=== PATIENT | female | born 1985 | race Caucasian/White ===

== ENCOUNTER 2019-09-29 22:16 | Inpatient (IN) | payer BC, OTHER ==
[~2019-09-29] VITALS: Ht 172.7 cm; Wt 82.0 kg
--- NOTE | 2019-09-29 23:00 | NUR ---
SIENNA PONCE FROM [facility]. SAMPLE CLERK 20G LEFT HAND, PAIN MEDS GIVEN ABOUT 2029. PT C/O RLQ PAIN STARTING THIS AM. PT CONNECTED TO MONITORING. FATHER AT BEDSIDE. AWAITING ORDERS AT THIS TIME.
--- NOTE | 2019-09-29 23:52 | NUR ---
REPORT GIVEN TO JAY WEBER
[2019-09-30] MEDS ORDERED: ONDANSETRON 2MG/ML, 2ML ONE ×2 (01:13→03:41)
[2019-09-30] MEDS ORDERED: MORPHINE SULFATE 4 MG/ML, 1ML ONE (01:13)
[2019-09-30] MEDS ORDERED: ONDANSETRON 2MG/ML, 2ML IVPush ONE (01:30)
[2019-09-30] MEDS ORDERED: MORPHINE SULFATE 4 MG/ML, 1ML IVPush PRN (01:30)
--- NOTE | 2019-09-30 01:55 | NUR ---
DR SPARKS AT PT'S BEDSIDE FOR EVAL
--- NOTE | 2019-09-30 02:15 | NUR ---
OR ON TELEPHONE, NOTTIFIED THAT THEY WILL INSTRUCTOR KNITTING PT IN 5 MINS FOR TRANSFER
[2019-09-30] MEDS ORDERED: EPINEPHRINE 1 MG/ML, 1ML ONE (02:24)
[2019-09-30] MEDS ORDERED: BUPIVACAINE/PF 0.25% ONE (02:24)
[2019-09-30] MEDS ORDERED: FENTANYL PF 100 MCG/2ML ONE ×2 (02:51→03:56)
[2019-09-30] MEDS ORDERED: MIDAZOLAM 1 MG/ML, 2ML ONE (02:51)
[2019-09-30] MEDS ORDERED: SCOPOLAMINE 1MG PATCH TD ONE (02:58)
[2019-09-30] MEDS ORDERED: BUPIVACAINE/PF-EPI 0.25% 1:200K IM ONE (03:19)
[2019-09-30] MEDS ORDERED: MEPERIDINE/PF 25MG/0.5ML IVPush PRN ×2 (03:30→04:00)
[2019-09-30] MEDS ORDERED: KETOROLAC 30 MG/1 ML IV PRN ×2 (03:30→04:00)
[2019-09-30] MEDS ORDERED: hydrALAzine 20 MG/ML, 1ML IV PRN ×2 (03:30→04:00)
[2019-09-30] MEDS ORDERED: ALBUTEROL SULFATE 2.5 MG/3 ML NPPB PRN ×2 (03:30→04:00)
[2019-09-30] MEDS ORDERED: ACETAMINOPHEN 325 MG TABLET PO PRN ×2 (03:30→04:00)
[2019-09-30] MEDS ORDERED: PROMETHAZINE 25 MG/ML, 1ML IV PRN ×2 (03:30→04:00)
[2019-09-30] MEDS ORDERED: LABETALOL 5MG/ML, 20ML IV PRN ×2 (03:30→04:00)
[2019-09-30] MEDS ORDERED: OXYcodone 5 MG/5 ML ORAL.SOL UDC PO PRN ×2 (03:30→04:00)
[2019-09-30] MEDS ORDERED: CEFAZOLIN 1,000 MG ONE (03:41)
[2019-09-30] MEDS ORDERED: ROCURONIUM 10MG/ML,5ML ONE (03:41)
[2019-09-30] MEDS ORDERED: DEXAMETHASONE 4 MG/ML, 1ML ONE (03:41)
[2019-09-30] MEDS ORDERED: SUCCINYLCHOLINE 20 MG/ML, 10ML ONE (03:41)
[2019-09-30] MEDS ORDERED: NEOSTIGMINE 1 MG/ML, 10ML ONE (03:41)
[2019-09-30] MEDS ORDERED: SUGAMMADEX 200 MG/2 ML IVPush ONE (03:41)
[2019-09-30] MEDS ORDERED: PROPOFOL 10 MG/ML, 20ML ONE (03:41)
[2019-09-30] MEDS ORDERED: GLYCOPYRROLATE 0.2MG/1ML, 5ML ONE (03:41)
[2019-09-30] MEDS ORDERED: OXYcodone 5 MG/5 ML ORAL.SOL UDC ONE (03:56)
[2019-09-30] MEDS ORDERED: HYDROmorphone 2 MG/ML, 1ML IVPush PRN (04:00)
[2019-09-30] MEDS: FENTANYL PF 100 MCG/2ML IV PRN ×2 (04:00→04:05)
[2019-09-30] MEDS ORDERED: DIAZEPAM 5 MG/ML, 2ML IVPush PRN (04:00)
[2019-09-30] MEDS ORDERED: FENTANYL PF 100 MCG/2ML IV PRN (04:00)
[2019-09-30] MEDS ORDERED: DIAZEPAM 5 MG/ML, 2ML ONE (04:03)
[2019-09-30] MEDS: DIAZEPAM 5 MG/ML, 2ML IVPush PRN ×2 (04:10→04:23)
[2019-09-30] MEDS ORDERED: HYDROmorphone 1 MG/ML, 1ML INJ ONE (04:12)
[2019-09-30] MEDS ORDERED: HYDROcodone/APAP 7.5-325MG/15ML UDC ONE (04:12)
[2019-09-30] MEDS: HYDROmorphone 2 MG/ML, 1ML IVPush PRN ×2 (04:18→04:20)
[2019-09-30] MEDS ORDERED: HYDROcodone/APAP 7.5-325MG/15ML UDC PO PRN ×2 (04:30→06:00)
[2019-09-30] MEDS ORDERED: KETOROLAC 30 MG/1 ML ONE (04:44)
[2019-09-30 05:40] VITALS: BP 115/71
[2019-09-30] MEDS ORDERED: morphine SULFATE 10 MG/ML, 1ML IV PRN (06:00)
[2019-09-30] MEDS: IBUPROFEN 600 MG TABLET PO SCH ×3 (06:00→16:00)
[2019-09-30] MEDS ORDERED: LACTATED RINGERS 500 ML IV ONE (06:00)
[2019-09-30 07:34] VITALS: BP 115/71
[2019-09-30] MEDS: KETOROLAC 30 MG/1 ML IV PRN ×2 (10:44→16:57)
[2019-09-30 13:58] VITALS: BP 101/62
[2019-09-30] MEDS ORDERED: IBUP200T49 PO (15:06)
[2019-09-30] MEDS ORDERED: HYDR-2443 PO (15:07)
[2019-09-30 17:24] VITALS: BP 94/58
== END 2019-09-30 18:41 | disposition home or self-care (01) | DRG 743 ==
LOC: ED 09-30 02:21 → 4NE 09-30 05:29
PROVIDERS: ADMIT Obstetrics & Gynecology; ATTEND Obstetrics & Gynecology
PROC: 0UT04ZZ Resection of Right Ovary, Percutaneous Endoscopic Approach (ICD-10-PCS; 2019-09-30)
PROC: 0UT54ZZ Resection of Right Fallopian Tube, Percutaneous Endoscopic Approach (ICD-10-PCS; principal; 2019-09-30 03:00)
DX: N83.511 Torsion of right ovary and ovarian pedicle (principal); N83.291 Other ovarian cyst, right side; I25.2 Old myocardial infarction; Z90.711 Acquired absence of uterus with remaining cervical stump; Z90.49 Acquired absence of other specified parts of digestive tract; Z88.0 Allergy status to penicillin
CPT/HCPCS: 88305; 96374; 96375; 99291; G0378; J0171; J0690; J1100; J1170; J1885; J2250; J2405; J2704; J2710; J3010; J3360; J3490; J7120; J0330; J2270